=== PATIENT | male | born 1955 | race Caucasian/White ===

== ENCOUNTER 2019-05-04 13:14 | Emergency (ER) | payer MEDICAID, OTHER ==
--- OUTSIDE RECORDS SUMMARY | 2019-05-04 13:30 | XMS REPORT ---
:1955 [facility] Address [address] [place] [address] Care Team Providers Name Role Phone UNKNOWN, REFFERING Primary Care Provider Unavailable JOSIANE MANCERA Unavailable Unavailable Problems This patient has no known problems. Allergies, Adverse Reactions, Alerts This patient has no known allergies or adverse reactions. Medications This patient has no known medications. Results Test Description Test Time Test Comments Text Results Atomic Results Result Comments POC Glucose, Blood 2017-02-27 10:54:00 Test Item Value Reference Range Comments POC Glucose (test code=POCGLUC) 285 mg/dL 70-115 Notify RN or MDIf you consider your patient critically ill, the Timothy Accu-Chek InformII metershould not be used for Glucose determinations.Draw a venous Glucose and send to the Main Lab for Analysis. B-Type Natriuretic [id number] 14:13:00 Test Item Value Reference Range Comments B-Type Natriuretic Peptide (test unrh=661215) 94.4 pg/mL 0.0-100.0 Glycosylated [id number] 22:15:00 Test Item Value Reference Range Comments HBA1c (test code=HBA1C) 9.5 % 4.8-5.9 Hepatitis Acute [id number] 22:15:00 Test Item Value Reference Range Comments Hep Bs Ag (test Nonreactive Non-Reactive code=HBSAG) Hep C Ab (test code=HCAB) Nonreactive Non-Reactive A Reactive result may indicate a past or present HCV infection orpossibly a carrier state. It is not diagnostic of Hepatitis C.However, a patient with a repeatedly Reactive result should beconsidered infectious. Reactive for HCV antibody by EIA screeningshould be confirmed by a supplemental test. Hepatitis A IgM (test Nonreactive Non-Reactive code=HAVM) Hep B Core IgM (test Nonreactive Non-Reactive code=HBCABM) Lipid [id number] 22:04:00 Test Item Value Reference Range Comments Cholesterol (test 183 mg/dL 0-200 code=CHOL) Triglycerides (test 129 mg/dL 9-200 code=TRIG) HDL (test code=HDL) 45 mg/dL 40-60 Chol/HDL (test 4.1 Ratio 0.0-5.0 code=CHOLPHDL) LDL, Calculated (test 112 mg/dL 0-130 (NOTE)RISK OF HEART code=LDLC) DISEASEPublished by Swiss Heart AssociationAnalyte Optimal Boderline Increased RiskCHOL <200 200-239 >240TRIG <150 150-199 >200HDL Male: >60 <40HDL Female: >60 <50LDL <100 130-159 >160LDL NEAR OPTIMAL IS 100-129 VLDL (test code=VLDL) 26 mg/dL 5-40 LDL/HDL (test code=LDLPHDL) 2 Comprehensive Metabolic [id number] 22:04:00 Test Item Value Reference Range Comments Sodium (test code=NA) 133 mmol/L 135-145 Potassium (test code=K) 4.6 mmol/L 3.5-5.1 Chloride (test code=CL) 95 mmol/L 98-105 Carbon Dioxide (test 26 mmol/L 22-29 code=CO2) Glucose (test code=GLU) 298 mg/dL 70-115 Blood Urea Nitrogen 15 mg/dL 8-23 (test code=BUN) Creatinine (test 0.8 mg/dL 0.7-1.2 code=CREAT) Calcium (test code=CA) 11.3 mg/dL 8.3-10.5 Prot Total (test 6.8 g/dL 6.4-8.3 code=TP) Albumin (test code=ALB) 4.4 g/dL 3.5-5.2 A/G Ratio (test 1.8 Ratio code=AGRATIO) Globulin (test 2.4 2.9-3.1 code=GLOB) Bili Total (test 0.6 mg/dL 0.1-0.9 code=TBIL) Alk Phos (test 48 U/L 40-129 code=APHOS) AST (test code=AST) 15 U/L 1-40 ALT (test code=ALT) 17 U/L 1-41 BUN/Creatinine Ratio 18.8 (test code=BCRATIO) Anion Gap (test 12 mmol/L 7-16 code=AGAP) Estimated GFR (test >60 mL/min/1.73m2 eGFR (estimated Glomerular code=GFR) Filtration Rate) is an estimated value,calculated from the patient's serum creatinine using the MDRD equation.It is NOT the patient's actual GFR. The eGFR provides a more clinicallyuseful measure of kidney disease than serum creatinine alone.This calculation takes sex and race into account, if the informationis provided. If the race is not provided, and the patient isAfrican-Swiss, multiply by 1.212. If sex is not provided, and thepatient is female, multiply by 0.742. Results for patients <18 years ofage have not been validated by the MDRD study and should be interpretedwith caution.eGFR Result Interpretation:eGFR > or=60 is in the Normal RangeeGFR < 60 may mean kidney diseaseeGFR < 15 may mean kidney failureRanges recommended by the National Kidney Foundation,http://nkdep.nih .gov CBC with [id number] 21:54:00 Test Item Value Reference Range Comments WBC (test code=WBC) 7.4 K/cumm 4.4-10.5 RBC (test code=RBC) 5.09 M/cumm 4.10-5.70 Hemoglobin (test code=HGB) 14.8 gm/dL 13.4-17.4 Hematocrit (test code=HCT) 46.8 % 38.7-52.0 MCV (test code=MCV) 91.9 fL 80-100 MCH (test code=MCH) 29.1 pg 27.0-32.5 MCHC (test code=MCHC) 31.6 g/dL 32.0-37.5 RDW (test code=RDW) 14.5 % 11.5-14.5 Platelet Count (test code=PLTCT) 268 K/cumm 140-440 MPV (test code=MPV) 8.6 fL Diff Method (test code=DIFFM) Auto Neutrophil (test code=NEUT) 69.2 % 36-70 Lymphocyte (test code=LYMPH) 16.8 % 12-44 Monocyte (test code=MONO) 11.6 % 0-11 Eosinophil (test code=EOS) 1.9 % 0-7 Basophil (test code=BASO) 0.6 % 0-2 Neutro Abs (test code=ANEUT) 5.1 K/cumm 1.6-7.4 Lymph Abs (test code=ALYMPH) 1.2 K/cumm 0.5-4.6 Wells Abs (test code=AMONO) 0.9 K/cumm 0.0-1.2 Eos Abs (test code=AEOS) 0.14 K/cumm 0.00-0.74 Baso Abs (test code=ABASO) 0.1 K/cumm 0.00-0.21
[2019-05-04] MEDS ORDERED: KETOROLAC 30 MG/ML INJ ONE (15:07)
[2019-05-04] MEDS ORDERED: HYDROCODONE/APAP 10/325 TAB ONE (15:07)
[2019-05-04] MEDS ORDERED: METHYLPREDNISOLONE 125 MG INJ ONE (15:07)
[2019-05-04] MEDS ORDERED: ONDANSETRON 4 MG/2 ML VIAL ONE (16:25)
[2019-05-04] MEDS ORDERED: MORPHINE 4 MG/ML SYR ONE (16:25)
--- NOTE | 2019-05-04 17:08 | ER ---
Nurse's Notes [facility] Name: Santo Lauren Age: 63 yrs Sex: Male : 1955 Arrival Date: 05/04/2019 Time: 13:17 Bed 27 Private MD: Diagnosis: Low back pain Presentation: 05/04 13:20 Presenting complaint: Patient states: chronic back pain that got worse about a week aa5 ago. Pt states "my family threw away my Tylenol #4 by accident". Transition of care: patient was not received from another setting of care. Onset of symptoms was April 2019. Risk Assessment: Do you want to hurt yourself or someone else? Patient reports no desire to harm self or others. Initial Sepsis Screen: Does the patient meet any 2 criteria? No. Patient's initial sepsis screen is negative. Does the patient have a suspected source of infection? No. Patient's initial sepsis screen is negative. Care prior to arrival: None. 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 - Social history:: Smoking status: Patient/guardian denies using tobacco. - Ebola Screening: : No symptoms or risks identified at this time. Screenin:00 Abuse screen: Denies threats or abuse. Denies injuries from another. Nutritional ca1 screening: No deficits noted. Tuberculosis screening: No symptoms or risk factors identified. Fall Risk Fall in past 12 months (25 points). IV access (20 points). Ambulatory Aid- Crutches/Cane/Walker (15 pts). Gait- Impaired (20 pts.). Assessment: 15:00 General: Appears in no apparent distress. comfortable, Behavior is calm, cooperative, ca1 appropriate for age. Pain: Complains of pain in back and sacrum and lumbar spine Pain does not radiate. Pain currently is 7 out of 10 on a pain scale. Pain began worsening a week ago Is chronic. Neuro: Level of Consciousness is awake, alert, obeys commands, Oriented to person, place, time, situation. Cardiovascular: Heart tones S1 S2 present Capillary refill < 3 seconds Patient's skin is warm and dry. Respiratory: Airway is patent Respiratory effort is even, unlabored, Respiratory pattern is regular, symmetrical, Breath sounds are clear bilaterally. GI: Abdomen is round non-distended, Bowel sounds present X 4 quads. Abd is soft and non tender X 4 quads. : No deficits noted. No signs and/or symptoms were reported regarding the genitourinary system. EENT: No deficits noted. No signs and/or symptoms were reported regarding the EENT system. Derm: Skin is intact, is healthy with good turgor, Skin is pink, warm \\T\\ dry. Musculoskeletal: Circulation, motion, and sensation intact. Capillary refill < 3 seconds, Range of motion: limited in left ankle Pt has cast on L leg and ankle. 16:19 Reassessment: Patient appears in no apparent distress at this time. Patient and/or ca1 family updated on plan of care and expected duration. Pain level reassessed. Patient is alert, oriented x 3, equal unlabored respirations, skin warm/dry/pink. 16:32 Reassessment: Pt c/o back pain 9/10. Dr. Granados notified, Morphine and Zofran hb administered as ordered. VSS. remains at bedside. 17:10 Reassessment: Patient appears in no apparent distress at this time. Patient is alert, ca1 oriented x 3, equal unlabored respirations, skin warm/dry/pink. Vital Signs: 13:23 BP 108 / 84; Pulse 81; Resp 18 S; Temp 98.4(O); Pulse Ox 98% on R/A; Weight 97.52 kg aa5 (R); Height 6 ft. 3 in. (190.50 cm) (R); Pain 9/10; 16:19 BP 111 / 79; Pulse 93; Resp 16 S; Pulse Ox 97% on R/A; ca1 17:10 BP 114 / 87; Pulse 96; Resp 16 S; Pulse Ox 98% on R/A; ca1 13:23 Body Mass Index 26.87 (97.52 kg, 190.50 cm) aa5 ED Course: 13:17 Patient arrived in ED. as 13:20 Arm band placed on. aa5 13:21 Triage completed. aa5 14:42 Orlando Granados MD is Attending Physician. kdr 15:00 Patient has correct armband on for positive identification. Bed in low position. Call ca1 light in reach. Side rails up X 1. Pulse ox on. NIBP on. 15:05 Adriana Oleary, ALEX is Primary Nurse. ca1 15:10 No provider procedures requiring assistance completed. Inserted saline lock: 22 gauge ca1 in right antecubital area, using aseptic technique. 17:06 Jose Page MD is Referral Physician. kdr 17:25 IV discontinued, intact, bleeding controlled, No redness/swelling at site. Pressure ca1 dressing applied. Administered Medications: 15:11 Drug: [place] 10 mg-325 mg 1 tabs Route: PO; ca1 16:30 Follow up: Response: No adverse reaction; Pain is unchanged, physician notified; RASS: ca1 Alert and Calm (0) 15:12 Drug: SOLU-Medrol 125 mg Route: IVP; Site: right antecubital; ca1 17:12 Follow up: Response: No adverse reaction ca1 15:15 Drug: TORadol - Ketorolac 15 mg Route: IVP; Site: right antecubital; ca1 16:30 Follow up: Response: No adverse reaction; Pain is unchanged, physician notified ca1 16:31 Drug: morphine 4 mg {Note: RASS 0.} Route: IVP; Site: right antecubital; hb 17:12 Follow up: Response: No adverse reaction; Pain is decreased ca1 17:12 Follow up: Response: RASS: Alert and Calm (0) ca1 16:32 Drug: Zofran 4 mg Route: IVP; Site: right antecubital; hb 17:12 Follow up: Response: No adverse reaction; Nausea is decreased ca1 Outcome: 17:07 Discharge ordered by . kdr 17:25 Discharged to home via wheelchair, with significant other. ca1 17:25 Condition: stable 17:25 Discharge instructions given to patient, Instructed on discharge instructions, follow up and referral plans. medication usage, Demonstrated understanding of instructions, follow-up care, medications, Prescriptions given X 2. 17:26 Patient left the ED. ca1 Signatures: Orlando Granados MD MD kdr Thuy Vargas Audri, RN RN aa5 Kaley Rodriguez RN RN Adriana Oleary RN RN ca1 Corrections: (The following items were deleted from the chart) 13:24 13:23 BP 108 / 84; Pulse 81bpm; Resp 18bpm; Spontaneous; Pulse Ox 98% RA; Temp 98.4F aa5 Oral; 97.52 kg Reported; Height 6 ft. 3 in. Reported; BMI: 26.8; aa5 : 14:00 General: Appears in no apparent distress. comfortable, Behavior is calm, ca1 cooperative, appropriate for age, ca1 14: Pain: Complains of pain in back and sacrum and lumbar spine Pain does not ca1 radiate. Pain currently is 7 out of 10 on a pain scale. Pain began worsening a week ago Is chronic, ca1 14: Neuro: Level of Consciousness is awake, alert, obeys commands, Oriented to ca1 person, place, time, situation, ca1 14:00 Cardiovascular: Heart tones S1 S2 present Capillary refill < 3 seconds Patient's ca1 skin is warm and dry. ca1 14: Respiratory: Airway is patent Respiratory effort is even, unlabored, Respiratory ca1 pattern is regular, symmetrical, Breath sounds are clear bilaterally. ca1 14: GI: Abdomen is round non-distended, Bowel sounds present X 4 quads. Abd is soft ca1 and non tender X 4 quads. ca1 14: : No deficits noted. No signs and/or symptoms were reported regarding the ca1 genitourinary system. ca1 14: EENT: No deficits noted. No signs and/or symptoms were reported regarding the ca1 EENT system. ca1 14: Derm: Skin is intact, is healthy with good turgor, Skin is pink, warm \\T\\ dry. ca1 ca1 14: Musculoskeletal: Circulation, motion, and sensation intact. Capillary refill < 3 ca1 seconds, Range of motion: limited in left ankle Pt has cast on L leg and ankle ca1 14: Patient has correct armband on for positive identification. Bed in low position. ca1 Call light in reach. Side rails up X 1. ca1 14: Pulse ox on. NIBP on. ca1 ca1 14: Abuse screen: Denies threats or abuse. Denies injuries from another. ca1 ca1 14:00 Nutritional screening: No deficits noted. ca1 ca1 15:30 14:00 Tuberculosis screening: No symptoms or risk factors identified. ca1 ca1 15:30 14:00 Fall Risk Fall in past 12 months (25 points). IV access (20 points). Ambulatory ca1 Aid- Crutches/Cane/Walker (15 pts). Gait- Impaired (20 pts.). ca1
--- NOTE | 2019-05-04 17:08 | EDPHYS ---
[facility] Name: Santo Lauren Age: 63 yrs Sex: Male : 1955 Arrival Date: 05/04/2019 Time: 13:17 Bed 27 Private MD: ED Physician Orlando Granados HPI: 05/04 15:07 This 63 yrs old Male presents to ER via Wheelchair with complaints of Back kdr Pain. 15:07 The patient presents with pain that is chronic, with no known mechanism of injury. The kdr symptoms are located in the low back, coccyx area. Onset: The symptoms/episode began/occurred This is a longstanding problem that is not related to any new injury or precipitating event.. The pain does not radiate. Associated signs and symptoms: The patient has no apparent associated signs or symptoms. The problem was sustained from unknown cause. Modifying factors: The patient symptoms are alleviated by remaining still, the patient symptoms are aggravated by any movement. Severity of symptoms: At their worst the symptoms were moderate, a " 9" out of "10", in the emergency department the symptoms are unchanged. The patient has experienced similar episodes in the past, chronically, The patient states that he has an L5/S1 bulging disk. Last filmed 4+ years ago. 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 - Social history:: Smoking status: Patient/guardian denies using tobacco. - Ebola Screening: : No symptoms or risks identified at this time. ROS: 15:07 Constitutional: Negative for fever, chills, and weight loss, Eyes: Negative for injury, kdr pain, redness, and discharge, ENT: Negative for injury, pain, and discharge, Neck: Negative for injury, pain, and swelling, Cardiovascular: Negative for chest pain, palpitations, and edema, Respiratory: Negative for shortness of breath, cough, wheezing, and pleuritic chest pain, Abdomen/GI: Negative for abdominal pain, nausea, vomiting, diarrhea, and constipation, : Negative for injury, bleeding, discharge, and swelling, MS/Extremity: Negative for injury and deformity, Skin: Negative for injury, rash, and discoloration, Neuro: Negative for headache, weakness, numbness, tingling, and seizure activity. Psych: Negative for depression, anxiety, suicide ideation, homicidal ideation, and hallucinations, Allergy/Immunology: Negative for hives, rash, and allergies, Endocrine: Negative for neck swelling, polydipsia, polyuria, polyphagia, and marked weight changes, Hematologic/Lymphatic: Negative for swollen nodes, abnormal bleeding, and unusual bruising. 15:07 Back: Positive for decreased range of motion, pain at rest, pain with movement, Negative for injury or acute deformity. Exam: 15:07 Constitutional: This is a well developed, well nourished patient who is awake, alert, kdr and in no acute distress. Head/Face: Normocephalic, atraumatic. Eyes: Pupils equal round and reactive to light, extra-ocular motions intact. Lids and lashes normal. Conjunctiva and sclera are non-icteric and not injected. Cornea within normal limits. Periorbital areas with no swelling, redness, or edema. Neck: Trachea midline, no thyromegaly or masses palpated, and no cervical lymphadenopathy. Supple, full range of motion without nuchal rigidity, or vertebral point tenderness. No Meningismus. Chest/axilla: Normal chest wall appearance and motion. Nontender with no deformity. No lesions are appreciated. Cardiovascular: Regular rate and rhythm with a normal S1 and S2. No gallops, murmurs, or rubs. Normal PMI, no JVD. No pulse deficits. Respiratory: Lungs have equal breath sounds bilaterally, clear to auscultation and percussion. No rales, rhonchi or wheezes noted. No increased work of breathing, no retractions or nasal flaring. Abdomen/GI: Soft, non-tender, with normal bowel sounds. No distension or tympany. No guarding or rebound. No evidence of tenderness throughout. Skin: Warm, dry with normal turgor. Normal color with no rashes, no lesions, and no evidence of cellulitis. MS/ Extremity: Pulses equal, no cyanosis. Neurovascular intact. Full, normal range of motion. Neuro: Awake and alert, GCS 15, oriented to person, place, time, and situation. Cranial nerves II-XII grossly intact. Motor strength 5/5 in all extremities. Sensory grossly intact. Cerebellar exam normal. Normal gait. Psych: Awake, alert, with orientation to person, place and time. Behavior, mood, and affect are within normal limits. 15:07 Back: pain, that is mild, ROM is painful, with all movement, normal spinal alignment noted, CVA tenderness, is absent, vertebral tenderness, is appreciated at lumbar spine and sacrum. Vital Signs: 13:23 BP 108 / 84; Pulse 81; Resp 18 S; Temp 98.4(O); Pulse Ox 98% on R/A; Weight 97.52 kg aa5 (R); Height 6 ft. 3 in. (190.50 cm) (R); Pain 9/10; 16:19 BP 111 / 79; Pulse 93; Resp 16 S; Pulse Ox 97% on R/A; ca1 17:10 BP 114 / 87; Pulse 96; Resp 16 S; Pulse Ox 98% on R/A; ca1 13:23 Body Mass Index 26.87 (97.52 kg, 190.50 cm) aa5 MDM: 17:07 Patient medically screened. kdr Administered Medications: 15:11 Drug: [place] 10 mg-325 mg 1 tabs Route: PO; ca1 16:30 Follow up: Response: No adverse reaction; Pain is unchanged, physician notified; RASS: ca1 Alert and Calm (0) 15:12 Drug: SOLU-Medrol 125 mg Route: IVP; Site: right antecubital; ca1 17:12 Follow up: Response: No adverse reaction ca1 15:15 Drug: TORadol - Ketorolac 15 mg Route: IVP; Site: right antecubital; ca1 16:30 Follow up: Response: No adverse reaction; Pain is unchanged, physician notified ca1 16:31 Drug: morphine 4 mg {Note: RASS 0.} Route: IVP; Site: right antecubital; hb 17:12 Follow up: Response: No adverse reaction; Pain is decreased ca1 17:12 Follow up: Response: RASS: Alert and Calm (0) ca1 16:32 Drug: Zofran 4 mg Route: IVP; Site: right antecubital; hb 17:12 Follow up: Response: No adverse reaction; Nausea is decreased ca1 Disposition: 05/04/19 17:07 Discharged to Home. Impression: Low back pain. - Condition is Stable. - Discharge Instructions: Back Pain, Adult, [id number]. - Prescriptions for Tylenol- Codeine #3 300-30 mg Oral Tablet - take 2 tablets by ORAL route every 6 hours As needed; 10 tablet. Cyclobenzaprine 10 mg Oral Tablet - take 1 tablet by ORAL route every 8 hours As needed; 6 tablet. - Medication Reconciliation Form, Thank You Letter, Prescription Opioid Use form. - Follow up: Private Physician; When: Tomorrow; Reason: If symptoms return, Further diagnostic work-up, Recheck today's complaints, Continuance of care, Re-evaluation by your physician. Follow up: Jose Page MD; When: Tomorrow; Reason: If symptoms return, Further diagnostic work-up, Recheck today's complaints, Continuance of care, Re-evaluation by your physician. - Problem is an acute exacerbation. - Symptoms have improved. Signatures: Orlando Granados MD MD [facility] Heidy Su RN RN aa5 Kaley Rodriguez RN RN Accash, ALEX Wright RN ca1 Corrections: (The following items were deleted from the chart) 17:26 17:07 05/04/2019 17:07 Discharged to Home. Impression: Low back pain. Condition is ca1 Stable. Forms are Medication Reconciliation Form, Thank You Letter, Antibiotic Education, Prescription Opioid Use. Follow up: Private Physician; When: Tomorrow; Reason: If symptoms return, Further diagnostic work-up, Recheck today's complaints, Continuance of care, Re-evaluation by your physician. Follow up: Jose Page; When: Tomorrow; Reason: If symptoms return, Further diagnostic work-up, Recheck today's complaints, Continuance of care, Re-evaluation by your physician. Problem is an acute exacerbation. Symptoms have improved. kdr
[2019-05-04 17:57] VITALS: BP 114/87; O2SAT 98
[2019-05-05 00:58] VITALS: TEMP 98.4
== END 2019-05-04 17:26 | disposition home or self-care (01) ==
LOC: ER 13:14
DX: M54.5 Low back pain (principal); I10 Essential (primary) hypertension; Z88.8 Allergy status to other drugs, medicaments and biological substances
CPT/HCPCS: J2930; J2405

== ENCOUNTER 2019-05-26 16:43 | Emergency (ER) | payer OTHER ==
--- OUTSIDE RECORDS SUMMARY | 2019-05-26 16:45 | XMS REPORT ---
:1955 [facility] Address [address] [place] [address] Care Team Providers Name Role Phone UNKNOWN, [...] the Main Lab for Analysis. B-Type Natriuretic [id number] 14:13:00 Test Item Value Reference Range Comments B-Type Natriuretic Peptide (test lhjw=[id number]) 94.4 pg/mL 0.0-100.0 Glycosylated [id number] 22:15:00 Test Item Value Reference Range Comments HBA1c (test code=HBA1C) 9.5 % 4.8-5.9 Hepatitis Acute [id number] 22:15:00 Test Item Value Reference Range Comments [...] Core IgM (test Nonreactive Non-Reactive code=HBCABM) Lipid [id number] 22:04:00 Test Item Value Reference Range Comments Cholesterol (test 183 mg/dL 0-200 code=CHOL) Triglycerides (test 129 mg/dL 9-200 code=TRIG) HDL (test code=HDL) 45 mg/dL 40-60 Chol/HDL (test 4.1 Ratio 0.0-5.0 code=CHOLPHDL) LDL, Calculated (test 112 mg/dL 0-130 (NOTE)RISK OF HEART code=LDLC) DISEASEPublished by [place] Heart AssociationAnalyte Optimal Boderline Increased RiskCHOL <200 200-239 >240TRIG <150 150-199 >200HDL Male: >60 <40HDL Female: >60 <50LDL <100 130-159 >160LDL NEAR OPTIMAL IS 100-129 VLDL (test code=VLDL) 26 mg/dL 5-40 LDL/HDL (test code=LDLPHDL) 2 Comprehensive Metabolic [id number] 22:04:00 Test Item Value Reference Range Comments [...] race is not provided, and the patient isAfrican-Greenlandic, multiply by 1.212. If sex is not [...] the National Kidney Foundation,http://nkdep.nih .gov CBC with [id number] 21:54:00 Test Item Value Reference Range Comments [...] Lymph Abs (test code=ALYMPH) 1.2 K/cumm 0.5-4.6 [place] Abs (test code=AMONO) 0.9 K/cumm 0.0-1.2 Eos Abs (test code=AEOS) 0.14 K/cumm 0.00-0.74 Baso Abs (test code=ABASO) 0.1 K/cumm 0.00-0.21
[2019-05-26] MEDS ORDERED: FENTANYL CITR 100 MCG/2 ML ONE (17:47)
[2019-05-26 18:12] LABS: Absolute Lymphocytes (CBC) 1.5 K/uL (0.7-4.9); Basophils % 0.5 % (0-1.3); Hematocrit 43.1 % (39.6-49.0); Lymphocytes % 21.1 % (15.3-44.8); MPV 8.6 fL (7.6-11.3); RBC Red Blood Cell Count 4.74 M/uL (4.33-5.43)
--- NOTE | 2019-05-26 18:32 | RAD REPORT ---
EXAM DESCRIPTION: RAD - Foot Left 2 View - 05/26/2019 6:17 pm CLINICAL HISTORY: pressure ulcer COMPARISON: <Comparisons> FINDINGS: Soft tissue swelling is seen adjacent to the first metatarsal head. A foreign body is not seen. No definitive evidence of underlying osteomyelitis.
[2019-05-26 18:38] LABS: Potassium 4.8 mmol/L (3.5-5.1)
[2019-05-26] MEDS ORDERED: NA CHLORIDE 0.9% 1,000 ML ONE ×2 (18:53→19:42)
[2019-05-26] MEDS ORDERED: INSULIN -REGULAR HUMAN 50 UNIT/0.5 ML ML ONE ×2 (18:53→20:48)
[2019-05-26] MEDS ORDERED: levoFLOXacin 750 MG TAB ONE (21:50)
[2019-05-26] MEDS ORDERED: DOXYCYCLINE 100 MG CAP PO ONE (21:50)
--- NOTE | 2019-05-26 21:55 | ER ---
[facility] Name: Santo Lauren Age: 63 yrs Sex: Male : 1955 Arrival Date: 05/26/2019 Time: 16:46 Bed 27 Private MD: Diagnosis: Open wound of foot-left;Cellulitis of left lower limb;Diabetes mellitus due to underlying condition with hyperglycemia Presentation: 05/26 16:53 Presenting complaint: Patient states: my L foot ulcer seems to have split open worse. I ch go to the wound center in Dr. Emilee Jeffries. Transition of care: patient was not received from another setting of care. Onset of symptoms was May 25, 2019 at 04:00. Risk Assessment: Do you want to hurt yourself or someone else? Patient reports no desire to harm self or others. Initial Sepsis Screen: Does the patient meet any 2 criteria? No. Patient's initial sepsis screen is negative. Does the patient have a suspected source of infection? Yes: Skin breakdown/wound. Care prior to arrival: None. 16:53 Method Of Arrival: Ambulatory 16:53 Acuity: JEF 4 Triage Assessment: 16:55 General: Appears in no apparent distress. uncomfortable, Behavior is calm, cooperative, appropriate for age. Pain: Complains of pain in left foot Pain currently is 6 out of 10 on a pain scale. 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 - Social history:: Smoking status: Patient/guardian denies using tobacco. - Ebola Screening: : Patient negative for fever greater than or equal to 101.5 degrees Fahrenheit, and additional compatible Ebola Virus Disease symptoms Patient denies exposure to infectious person Patient denies travel to an Ebola-affected area in the 21 days before illness onset No symptoms or risks identified at this time. Screenin:11 Abuse screen: Denies threats or abuse. Denies injuries from another. Nutritional screening: No deficits noted. Tuberculosis screening: No symptoms or risk factors identified. 18:12 Fall Risk None identified. Assessment: 18:14 General: Appears in no apparent distress. Pain: Complains of pain in ball of left foot wh Pain does not radiate. Pain currently is 8 out of 10 on a pain scale. Quality of pain is described as aching, Pain began 1 day ago. Neuro: Level of Consciousness is awake, alert, obeys commands, Oriented to person, place, time, situation, Appropriate for age. Cardiovascular: Capillary refill < 3 seconds. Respiratory: Airway is patent Respiratory effort is even, unlabored, Respiratory pattern is regular, symmetrical. GI: Abdomen is flat, non-distended. : No deficits noted. EENT: No deficits noted. Derm: Skin is intact, is healthy with good turgor, Wound noted ball of left foot. Musculoskeletal: Range of motion: intact in all extremities. 19:15 Reassessment: Patient appears in no apparent distress at this time. No changes from previously documented assessment. Patient and/or family updated on plan of care and expected duration. Pain level reassessed. Patient is alert, oriented x 3, equal unlabored respirations, skin warm/dry/pink. 20:16 Reassessment: Patient appears in no apparent distress at this time. No changes from previously documented assessment. Patient and/or family updated on plan of care and expected duration. Pain level reassessed. Patient is alert, oriented x 3, equal unlabored respirations, skin warm/dry/pink. 21:14 Reassessment: Patient appears in no apparent distress at this time. No changes from previously documented assessment. Patient and/or family updated on plan of care and expected duration. Pain level reassessed. Patient is alert, oriented x 3, equal unlabored respirations, skin warm/dry/pink. Patient denies pain at this time. Patient states feeling better. Patient states symptoms have improved. 22:15 Reassessment: Patient appears in no apparent distress at this time. No changes from previously documented assessment. Patient and/or family updated on plan of care and expected duration. Pain level reassessed. Patient is alert, oriented x 3, equal unlabored respirations, skin warm/dry/pink. Patient denies pain at this time. Patient states feeling better. Patient states symptoms have improved. Vital Signs: 16:55 BP 168 / 82; Pulse 105; Resp 18; Temp 98.3; Pulse Ox 99% on R/A; Weight 98.88 kg; Height 6 ft. 3 in. (190.50 cm); Pain 7/10; 17:11 BP 111 / 77; Pulse 97; Resp 20; Temp 98.7; Pulse Ox 96% ; lt1 18:00 BP 117 / 95; Pulse 93; Resp 18; Pulse Ox 94% ; wh 20:00 BP 110 / 88; Pulse 109; Resp 18; Pulse Ox 98% on R/A; wh 21:00 BP 101 / 87; Pulse 104; Resp 18; Pulse Ox 96% on R/A; wh 22:00 BP 128 / 86; Pulse 92; Resp 18; Pulse Ox 98% on R/A; wh 16:55 Body Mass Index 27.25 (98.88 kg, 190.50 cm) ED Course: 16:46 Patient arrived in ED. as 16:54 Triage completed. 16:55 Arm band placed on left wrist. Patient placed in an exam room. 17:08 Ishaan Hart PA is PHCP. cp 17:08 Hernando Mcgill MD is Attending Physician. cp 17:43 Ayala Orellana is Primary Nurse. 18:11 Inserted saline lock: 20 gauge in left antecubital area, using aseptic technique. Blood wh collected. 18:12 Patient has correct armband on for positive identification. Bed in low position. Call light in reach. Side rails up X 1. Pulse ox on. NIBP on. 18:16 X-ray completed. Portable x-ray completed in exam room. Patient tolerated procedure mh1 well. 18:18 XRAY Foot LEFT 2 View In Process Unspecified. EDMS 22:18 No provider procedures requiring assistance completed. IV discontinued, intact, wh bleeding controlled, No redness/swelling at site. Wound care: to OPen wound located on ball of left foot was cleaned with soap and water, dressed with 4X4s, Kerlix, Patient tolerated well. Administered Medications: 18:10 Drug: fentaNYL (PF) 25 mcg {Note: RASS 0.} Route: IVP; Site: left antecubital; 20:01 Follow up: Response: No adverse reaction; Pain is decreased; RASS: Alert and Calm (0) 19:01 Drug: Insulin Regular Human 10 units {Co-Signature: ca1 (Adriana Oleary RN).} Route: IVP; Site: left antecubital; 20:01 Follow up: Response: No adverse reaction; Blood sugar is lowered 19:01 Drug: NS 0.9% 1000 ml Route: IV; Rate: 1 bolus; Site: left antecubital; 20:01 Follow up: IV Status: Completed infusion 20:02 Drug: NS 0.9% 1000 ml Route: IV; Rate: 125 ml/hr; Site: left antecubital; 22:20 Follow up: Response: No adverse reaction; IV Status: Completed infusion 20:49 Drug: Insulin Regular Human 10 units {Co-Signature: ca1 (Adriana Oleary RN).} Route: IVP; Site: left antecubital; 22:17 Follow up: Response: No adverse reaction; Blood sugar is lowered 21:53 Drug: LevaQUIN 750 mg Route: PO; ca1 22:17 Follow up: Response: No adverse reaction 21:53 Drug: Doxycycline 100 mg Route: PO; ca1 22:17 Follow up: Response: No adverse reaction Point of Care Testing: Blood Glucose: 19:41 Blood Glucose: 307 mg/dL; lt1 21:48 Blood Glucose: 110 mg/dL; ca1 Ranges: Outcome: 21:50 Discharge ordered by MD. 22:19 Discharged to home ambulatory. 22:19 Condition: good 22:19 Discharge instructions given to patient, Instructed on discharge instructions, follow up and referral plans. no drinking with medication, no driving heavy equipment, medication usage, wound care, Demonstrated understanding of instructions, follow-up care, medications, wound care, Prescriptions given X 3. 22:19 Patient left the ED. Signatures: Dispatcher [employer] Alicia Quinteros, Dunia Carmen RN, ch 1 Thuy Vargas Corey, PA PA cp Habalo, Winsy Adriana Oleary RN RN ca1 [place], [facility] Adriana Oleary RN ca1
--- NOTE | 2019-05-26 21:56 | EDPHYS ---
Physician Documentation [facility] Name: Santo Lauren Age: 63 yrs Sex: Male : 1955 Arrival Date: 05/26/2019 Time: 16:46 Bed 27 Private MD: ED Physician Hernando Mcgill HPI: 05/26 17:45 This 63 yrs old Male presents to ER via Ambulatory with complaints of Wound cp Check. 17:45 The patient presents with pain, that is chronic, chronic wound left great toe. cp 17:45 The complaints affect the left foot. Onset: The symptoms/episode began/occurred cp gradually, and became worse today. Associated signs and symptoms: Pertinent positives: warmth, Pertinent negatives: calf tenderness, fever. 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 - Social history:: Smoking status: Patient/guardian denies using tobacco. - Ebola Screening: : Patient negative for fever greater than or equal to 101.5 degrees Fahrenheit, and additional compatible Ebola Virus Disease symptoms Patient denies exposure to infectious person Patient denies travel to an Ebola-affected area in the 21 days before illness onset No symptoms or risks identified at this time. ROS: 17:50 Constitutional: Negative for body aches, chills, fever, poor PO intake. cp 17:50 Eyes: Negative for injury, pain, redness, and discharge. cp 17:50 Cardiovascular: Negative for chest pain, palpitations. 17:50 Respiratory: Negative for cough, shortness of breath, wheezing. 17:50 Abdomen/GI: Negative for abdominal pain, nausea, vomiting, and diarrhea. 17:50 Skin: Positive for chronic wound left great toe. 17:50 Neuro: Negative for altered mental status, dizziness, headache, weakness. 17:50 All other systems are negative. Exam: 18:00 Constitutional: The patient appears in no acute distress, alert, awake, cp non-diaphoretic, non-toxic, well developed, well nourished. 18:00 Head/Face: Normocephalic, atraumatic. cp 18:00 Eyes: Periorbital structures: appear normal, Conjunctiva: normal, no exudate, no injection, Sclera: no appreciated abnormality, Lids and lashes: appear normal, bilaterally. 18:00 ENT: External ear(s): are unremarkable, Nose: is normal, Mouth: Lips: moist, Oral mucosa: pink and intact, moist, Posterior pharynx: is normal, airway is patent, no erythema, no exudate. 18:00 Chest/axilla: Inspection: normal, Palpation: is normal, no crepitus, no tenderness. 18:00 Cardiovascular: Rate: normal, Rhythm: regular. 18:00 Respiratory: the patient does not display signs of respiratory distress, Respirations: normal, no use of accessory muscles, no retractions, no splinting, no tachypnea. 18:00 Abdomen/GI: Exam negative for discomfort, distension, guarding, Inspection: abdomen appears normal. 18:00 Skin: cellulitis, that is moderate, on the left foot, chronic wound noted left great toe. 18:00 Neuro: Orientation: to person, place \T\ time. Mentation: is normal, Motor: moves all fours. Vital Signs: 16:55 BP 168 / 82; Pulse 105; Resp 18; Temp 98.3; Pulse Ox 99% on R/A; Weight 98.88 kg; ch Height 6 ft. 3 in. (190.50 cm); Pain 7/10; 17:11 BP 111 / 77; Pulse 97; Resp 20; Temp 98.7; Pulse Ox 96% ; lt1 18:00 BP 117 / 95; Pulse 93; Resp 18; Pulse Ox 94% ; wh 20:00 BP 110 / 88; Pulse 109; Resp 18; Pulse Ox 98% on R/A; wh 21:00 BP 101 / 87; Pulse 104; Resp 18; Pulse Ox 96% on R/A; wh 22:00 BP 128 / 86; Pulse 92; Resp 18; Pulse Ox 98% on R/A; wh 16:55 Body Mass Index 27.25 (98.88 kg, 190.50 cm) ch MDM: 17:47 Patient medically screened. cp 20:00 Differential diagnosis: cellulitis, osteomyelitis, gangrene, sepsis. cp 21:50 Data reviewed: vital signs, nurses notes, lab test result(s), radiologic studies, plain cp films, and as a result, I will discharge patient. 21:50 Counseling: I had a detailed discussion with the patient and/or guardian regarding: the cp historical points, exam findings, and any diagnostic results supporting the discharge/admit diagnosis, lab results, radiology results, the need for outpatient follow up, a general surgeon, wound care clinic. 21:50 Response to treatment: the patient's symptoms have markedly improved after treatment, cp and as a result, I will discharge patient. 21:50 ED course: VSS. WBC and repeat lactate WNL. Will discharge to home with oral cp antibiotics. 05/26 17:27 Order name: CBC with Diff; Complete Time: 18:44 05/26 17:27 Order name: BMP; Complete Time: 19:05 cp 05/26 19:05 Interpretation: Normal except: NA 135; GLUC 495; BUN 19; GFR 58. cp 05/26 17:27 Order name: Blood Culture Adult (2) cp 05/26 17:27 Order name: Procalcitonin; Complete Time: 20:19 cp 05/26 17:27 Order name: Lactate; Complete Time: 18:44 cp 05/26 17:27 Order name: XRAY Foot LEFT 2 View; Complete Time: 18:44 05/26 20:21 Order name: Glucose, Ancillary Testing; Complete Time: 20:37 EDCA 05/26 21:24 Order name: Lactate Sepsis 2 HR Follow-up; Complete Time: 21:36 EDMS 05/26 17:27 Order name: IV; Complete Time: 17:44 cp 05/26 21:37 Order name: Accucheck Blood Glucose; Complete Time: 21:48 cp 05/26 21:49 Order name: Wound dressing; Complete Time: 21:52 cp 05/26 21:49 Order name: Post-op shoe; Complete Time: 21:52 cp Administered Medications: 18:10 Drug: fentaNYL (PF) 25 mcg {Note: RASS 0.} Route: IVP; Site: left antecubital; 20:01 Follow up: Response: No adverse reaction; Pain is decreased; RASS: Alert and Calm (0) 19:01 Drug: Insulin Regular Human 10 units {Co-Signature: ca1 (Adriana Oleary RN).} Route: IVP; Site: left antecubital; 20:01 Follow up: Response: No adverse reaction; Blood sugar is lowered 19:01 Drug: NS 0.9% 1000 ml Route: IV; Rate: 1 bolus; Site: left antecubital; 20:01 Follow up: IV Status: Completed infusion 20:02 Drug: NS 0.9% 1000 ml Route: IV; Rate: 125 ml/hr; Site: left antecubital; 22:20 Follow up: Response: No adverse reaction; IV Status: Completed infusion 20:49 Drug: Insulin Regular Human 10 units {Co-Signature: ca1 (Adriana Oleary RN).} Route: IVP; Site: left antecubital; 22:17 Follow up: Response: No adverse reaction; Blood sugar is lowered 21:53 Drug: LevaQUIN 750 mg Route: PO; ca1 22:17 Follow up: Response: No adverse reaction 21:53 Drug: Doxycycline 100 mg Route: PO; ca1 22:17 Follow up: Response: No adverse reaction Point of Care Testing: Blood Glucose: 19:41 Blood Glucose: 307 mg/dL; lt1 21:48 Blood Glucose: 110 mg/dL; ca1 Ranges: Critical Glucose Levels:Adult <50 mg/dl or >400 mg/dl <40 mg/dl or >180 mg/dl Disposition: 05/26/19 21:50 Discharged to Home. Impression: Open wound of foot - left, Cellulitis of left lower limb, Diabetes mellitus due to underlying condition with hyperglycemia. - Condition is Stable. - Discharge Instructions: Cellulitis, Adult, Blood Glucose Monitoring, Adult, Diabetes Mellitus and Food, Insulin Treatment for Diabetes. - Prescriptions for Doxycycline Monohydrate 100 mg Oral Tablet - take 1 tablet by ORAL route every 12 hours for 10 days; 20 tablet. Levaquin 500 mg Oral Tablet - take 1 tablet by ORAL route once daily for 10 days start evening of 05-27-2019; 9 tablet. Tylenol- Codeine #3 300-30 mg Oral Tablet - take 2 tablets by ORAL route every 8 hours As needed; 15 tablet. - Medication Reconciliation Form, Thank You Letter, Antibiotic Education, Prescription Opioid Use form. - Follow up: Private Physician; When: 1 - 2 days; Reason: Wound Recheck. - Problem is an ongoing problem. - Symptoms have improved. Addendum: 05/28/2019 07:03 Co-signature as Attending Physician, Hernando Mcgill MD. r n Signatures: Dispatcher [employer] EDCA Alicia Eugene RN RN Hernando Mcgill MD MD rn Page, Corey, PA PA cp Habalo, Winsy Adriana Oleary RN RN ca1 Adriana Oleary RN ca1 Corrections: (The following items were deleted from the chart) 05/26 20:49 20:21 LACTATE+C.LAB.BRZ ordered. EDCA EDMS 22:19 21:50 05/26/2019 21:50 Discharged to Home. Impression: Open wound of foot - left; wh Cellulitis of left lower limb; Diabetes mellitus due to underlying condition with hyperglycemia. Condition is Stable. Forms are Medication Reconciliation Form, Thank You Letter, Antibiotic Education, Prescription Opioid Use. Follow up: Private Physician; When: 1 - 2 days; Reason: Wound Recheck. Problem is an ongoing problem. Symptoms have improved. cp
[2019-05-26 23:32] VITALS: TEMP 98.7
[2019-05-26 23:37] VITALS: BP 128/86; O2SAT 98
== END 2019-05-26 22:19 | disposition home or self-care (01) ==
LOC: ER 16:43
DX: L03.032 Cellulitis of left toe (principal); E08.65 Diabetes mellitus due to underlying condition with hyperglycemia; Z79.4 Long term (current) use of insulin; I10 Essential (primary) hypertension; I48.91 Unspecified atrial fibrillation; Z88.8 Allergy status to other drugs, medicaments and biological substances
CPT/HCPCS: 96361; 87040 ×2; 85025; 80048; 36415; 87205; 82962 ×2; 83605 ×2; 84145; 73620; 96375; 96374; 99284; J3010; J7030 ×2

== ENCOUNTER 2019-11-07 10:41 | Emergency (ER) | payer OTHER ==
--- OUTSIDE RECORDS SUMMARY | 2019-11-07 10:44 | XMS REPORT ---
:1955 [facility] Address [address] [place] [address] Care Team Providers Name Role Phone UNKNOWN, [...] the Main Lab for Analysis. B-Type Natriuretic [id number] 14:13:00 Test Item Value Reference Range Comments B-Type Natriuretic Peptide (test ymgg=[id number]) 94.4 pg/mL 0.0-100.0 Glycosylated [id number] 22:15:00 Test Item Value Reference Range Comments HBA1c (test code=HBA1C) 9.5 % 4.8-5.9 Hepatitis Acute [id number] 22:15:00 Test Item Value Reference Range Comments [...] Core IgM (test Nonreactive Non-Reactive code=HBCABM) Lipid [id number] 22:04:00 Test Item Value Reference Range Comments Cholesterol (test 183 mg/dL 0-200 code=CHOL) Triglycerides (test 129 mg/dL 9-200 code=TRIG) HDL (test code=HDL) 45 mg/dL 40-60 Chol/HDL (test 4.1 Ratio 0.0-5.0 code=CHOLPHDL) LDL, Calculated (test 112 mg/dL 0-130 (NOTE)RISK OF HEART code=LDLC) DISEASEPublished by Pakistani Heart AssociationAnalyte Optimal Boderline Increased RiskCHOL <200 200-239 >240TRIG <150 150-199 >200HDL Male: >60 <40HDL Female: >60 <50LDL <100 130-159 >160LDL NEAR OPTIMAL IS 100-129 VLDL (test code=VLDL) 26 mg/dL 5-40 LDL/HDL (test code=LDLPHDL) 2 Comprehensive Metabolic [id number] 22:04:00 Test Item Value Reference Range Comments [...] race is not provided, and the patient isAfrican-Pakistani, multiply by 1.212. If sex is not [...] the National Kidney Foundation,http://nkdep.nih .gov CBC with [id number] 21:54:00 Test Item Value Reference Range Comments [...] Lymph Abs (test code=ALYMPH) 1.2 K/cumm 0.5-4.6 [place] Abs (test code=AMONO) 0.9 K/cumm 0.0-1.2 Eos Abs (test code=AEOS) 0.14 K/cumm 0.00-0.74 Baso Abs (test code=ABASO) 0.1 K/cumm 0.00-0.21
[2019-11-07] MEDS ORDERED: KETOROLAC 30 MG/ML INJ ONE (11:40)
--- NOTE | 2019-11-07 12:12 | RAD REPORT ---
EXAM DESCRIPTION: RAD - Hip Left 2 View - 11/07/2019 11:59 am CLINICAL HISTORY: Left hip pain FINDINGS: No fracture or dislocation is seen. Osteoporosis. Mild osteoarthritis involves the left hip
--- NOTE | 2019-11-07 12:13 | RAD REPORT ---
EXAM DESCRIPTION: RAD - Pelvis - 11/07/2019 12:00 pm CLINICAL HISTORY: Pelvic pain FINDINGS: No fracture or dislocation is seen. Osteoporosis Mild osteoarthritis involves the hips
[2019-11-07 12:20] LABS: Urine Bacteria NONE SEEN /HPF (NONE SEEN); Urine Culture Reflex Order NOT NEEDED; Urine Mucus HEAVY /HPF (NONE SEEN); Urine RBC NONE SEEN /HPF (NONE SEEN)
[2019-11-07 12:20] LABS: Urine Blood NEGATIVE (NEG); Urine Glucose TRACE (NEG); Urine Protein TRACE (NEG); Urine Specific Gravity >1.030 (1.005-1.030); Urine pH 5.5 (5.0-7.0)
--- NOTE | 2019-11-07 13:03 | RAD REPORT ---
EXAM DESCRIPTION: CT - Pelvis Wo Cont - 11/07/2019 12:52 pm CLINICAL HISTORY: left hip pain Progressive left hip pain, radiculopathy COMPARISON: Pelvis dated 11/07/2019; Hip Left 2 View dated 11/07/2019 TECHNIQUE: All CT scans are performed using dose optimization technique as appropriate and may inclu de automated exposure control or mA/KV adjustment according to patient size. FINDINGS: Osteoarthritic changes are present in both hips with joint space loss and small osteophyte s. No fracture, dislocation or AVN pattern is observed. Moderate lumbosacral degenerative changes are seen with chronic bilateral spondylolysis at L5-S1. Mil d associated anterolisthesis of L5 on S1 is seen. Sacral ala are intact. No soft tissue mass or hematoma. Atherosclerosis. Small bilateral inguinal hernias are seen, without bowel involvement. IMPRESSION: [id number] bilateral osteoarthritis of the hips. No acute fracture dislocation or AVN pattern. All CT scans are performed using dose optimization technique as appropriate and may include automated exposure control or mA/KV adjustment according to patient size.
--- NOTE | 2019-11-07 13:10 | RAD REPORT ---
EXAM DESCRIPTION: CTSpine Lumbar Wo Con11/07/2019 12:57 pm CLINICAL HISTORY: Left leg radiculopathy COMPARISON: June 2019 MRI TECHNIQUE: Computed axial tomography lumbar spine was obtained with coronal and sagittal reconstruct ion. All CT scans are performed using dose optimization technique as appropriate and may include automated exposure control or mA/KV adjustment according to patient size. FINDINGS: Slight anterior subluxation L5 on S1. Bilateral spondylolysis L5 No acute fracture or dislocation Minimal spondylosis involves L1-2, L2-3, L3-4 L4-5. A vacuum phenomena is present at L5. Thecal sac is normal caliber. Mild to moderate narrowing left ne ural foramina IMPRESSION: Slight anterior subluxation L5 on S1 with spondylolysis L5 Mild to moderate left foraminal stenosis L5
--- NOTE | 2019-11-07 13:40 | ER ---
Nurse's Notes [facility] Name: Santo Lauren Age: 64 yrs Sex: Male : 1955 Arrival Date: 11/07/2019 Time: 10:43 Bed 14 Private MD: Jose Page E Diagnosis: Low back pain;Radiculopathy, lumbosacral region-left Presentation: 11/07 11:07 Presenting complaint: Patient states: Chronic L hip pain that has gotten much worse ss over the past week or so. Pt has been seen at [facility] recently for same complaint and given Flexeril and Tylenol #3. Pt reports that the medication is not helping. Transition of care: patient was not received from another setting of care. Onset of symptoms is unknown. Risk Assessment: Do you want to hurt yourself or someone else? Patient reports no desire to harm self or others. Initial Sepsis Screen: Does the patient meet any 2 criteria? No. Patient's initial sepsis screen is negative. Does the patient have a suspected source of infection? No. Patient's initial sepsis screen is negative. Care prior to arrival: None. 11:07 Method Of Arrival: Wheelchair ss 11:07 Acuity: JEF 4 ss Triage Assessment: 11:16 General: Appears in no apparent distress. comfortable, Behavior is calm, cooperative, bp appropriate for age. Pain: Complains of pain in left hip. EENT: No deficits noted. Neuro: No deficits noted. Cardiovascular: No deficits noted. Respiratory: No deficits noted. GI: No signs and/or symptoms were reported involving the gastrointestinal system. : No signs and/or symptoms were reported regarding the genitourinary system. Derm: No deficits noted. Musculoskeletal: No deficits noted. 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 - Coronavirus screen:: The patient has NOT traveled to [place] in the past 14 days. Proceed with normal triage process as indicated. - Social history:: Smoking status: Patient denies any tobacco usage or history of. - Ebola Screening: : Patient denies exposure to infectious person Patient denies travel to an Ebola-affected area in the 21 days before illness onset. Screenin:16 Abuse screen: Denies threats or abuse. Denies injuries from another. Nutritional bp screening: No deficits noted. Tuberculosis screening: No symptoms or risk factors identified. Fall Risk None identified. Assessment: 11:16 General: SEE TRIAGE NOTE. bp 12:04 Reassessment: PT RETURNED FROM RADIOLOGY. bp 12:45 Reassessment: PT TO CT. bp 13:51 Reassessment: PT D/C HOME VIA W/C, DX WITH RADICULOPATHY. bp Vital Signs: 11:09 BP 141 / 95; Pulse 76; Resp 16; Temp 98.0(TE); Pulse Ox 99% on R/A; Weight 104.33 kg; ss Height 6 ft. 3 in. (190.50 cm); Pain 8/10; 12:05 BP 155 / 102; Pulse 52; Resp 17; Pulse Ox 96% ; bp 12:45 BP 133 / 90; Pulse 93; Resp 16; Pulse Ox 96% ; bp 13:51 BP 135 / 84; Pulse 85; Resp 17; Temp 98; Pulse Ox 97% ; bp 11:09 Body Mass Index 28.75 (104.33 kg, 190.50 cm) ss ED Course: 10:43 Patient arrived in ED. mr 10:43 Jose Page MD is Private Physician. mr 11:09 Triage completed. ss 11:09 Arm band placed on right wrist. ss 11:10 Ishaan Hart PA is PHCP. cp 11:10 Ishaan Hernandez MD is Attending Physician. cp 11:15 Hiren Wisdom, ALEX is Primary Nurse. bp 11:16 Patient has correct armband on for positive identification. Bed in low position. Call bp light in reach. Side rails up X2. 13:18 CT Lumbar Spine Wo Con In Process Unspecified. EDMS 13:52 No provider procedures requiring assistance completed. Patient did not have IV access bp during this emergency room visit. Administered Medications: 11:47 Drug: TORadol 30 mg Route: IM; Site: right deltoid; bp 13:53 Follow up: Response: Pain is decreased bp Outcome: 13:39 Discharge ordered by . cp 13:52 Discharged to home via wheelchair. bp 13:52 Condition: stable 13:52 Discharge instructions given to patient, Instructed on discharge instructions, follow up and referral plans. medication usage, Demonstrated understanding of instructions, follow-up care, medications, Prescriptions given X 3. 13:54 Patient left the ED. bp Signatures: Dispatcher [employer] SAHARAMT Dina Bellamy YamilaEemly horn, RN RN ss Ishaan Hart PA PA cp Peltier, Brian, RN RN bp
--- NOTE | 2019-11-07 13:40 | EDPHYS ---
Physician Documentation [facility] Name: Santo Via Age: 64 yrs Sex: Male : 1955 Arrival Date: 11/07/2019 Time: 10:43 Bed 14 Private MD: Jose Page E ED Physician Ishaan Hrenandez HPI: 11/07 11:30 This 64 yrs old Male presents to ER via Wheelchair with complaints of Hip cp Pain. 11:30 The patient or guardian reports pain. sustained from unknown reason, The patient is cp able to ambulate with assistance. Patient is not able to bear weight. 11:30 The patient presents with pain that is chronic, with no known mechanism of injury. cp 11:30 The symptoms are located in the low back. cp 11:30 The complaints affect the left hip. cp 11:30 Associated signs and symptoms: Pertinent negatives: abdominal pain, dysuria, fever, cp incontinence, numbness. The patient has been recently seen by a physician: in [place] ED, with similar presenting complaints, was given a prescription for pain medications. 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 - Coronavirus screen:: The patient has NOT traveled to [place] in the past 14 days. Proceed with normal triage process as indicated. - Social history:: Smoking status: Patient denies any tobacco usage or history of. - Ebola Screening: : Patient denies exposure to infectious person Patient denies travel to an Ebola-affected area in the 21 days before illness onset. ROS: 11:40 Constitutional: Negative for body aches, chills, fever. cp 11:40 Eyes: Negative for injury, pain, redness, and discharge. cp 11:40 Cardiovascular: Negative for chest pain. cp 11:40 Neck: Negative for pain with movement, pain at rest. cp 11:40 Respiratory: Negative for cough, shortness of breath, wheezing. 11:40 Abdomen/GI: Negative for abdominal pain, vomiting, diarrhea, constipation, black/tarry stool, rectal bleeding, bowel incontinence. 11:40 Back: Positive for pain at rest, pain with movement, of the low back area. 11:40 : Negative for urinary symptoms, difficulty urinating, bladder incontinence, testicular pain 11:40 MS/extremity: Positive for pain, of the left hip, Negative for injury or acute deformity. 11:40 Skin: Negative for rash. 11:40 Neuro: Negative for headache, numbness, tingling. 11:40 All other systems are negative. Exam: 11:45 Constitutional: The patient appears in no acute distress, alert, awake, non-toxic, well cp developed, well nourished. 11:45 Head/Face: Normocephalic, atraumatic. cp 11:45 Eyes: Periorbital structures: appear normal, Conjunctiva: normal, no exudate, no cp injection, Sclera: no appreciated abnormality, Lids and lashes: appear normal, bilaterally. 11:45 ENT: External ear(s): are unremarkable, Nose: is normal, Mouth: Lips: moist, Oral cp mucosa: pink and intact, moist, Posterior pharynx: is normal, airway is patent. 11:45 Neck: ROM/movement: is normal, is supple, without pain, no range of motions limitations, no nuchal rigidity. 11:45 Chest/axilla: Inspection: normal. 11:45 Cardiovascular: Rate: normal. 11:45 Respiratory: the patient does not display signs of respiratory distress, Respirations: normal, no use of accessory muscles, labored breathing, is not present. 11:45 Abdomen/GI: Inspection: abdomen appears normal, Palpation: abdomen is soft and non-tender, in all quadrants, voluntary guarding, is not appreciated, involuntary guarding, is not appreciated. 11:45 Back: pain, that is moderate, of the low back area, ROM is painful, with flexion. 11:45 Musculoskeletal/extremity: Joints: the left hip displays pain at rest, painful range of motion, tenderness. 11:45 Skin: no rash present. 11:45 Neuro: Motor: moves all fours, strength is normal, Sensation: no obvious gross deficits. Vital Signs: 11:09 BP 141 / 95; Pulse 76; Resp 16; Temp 98.0(TE); Pulse Ox 99% on R/A; Weight 104.33 kg; ss Height 6 ft. 3 in. (190.50 cm); Pain 8/10; 12:05 BP 155 / 102; Pulse 52; Resp 17; Pulse Ox 96% ; bp 12:45 BP 133 / 90; Pulse 93; Resp 16; Pulse Ox 96% ; bp 13:51 BP 135 / 84; Pulse 85; Resp 17; Temp 98; Pulse Ox 97% ; bp 11:09 Body Mass Index 28.75 (104.33 kg, 190.50 cm) ss MDM: 11:16 Patient medically screened. cp 12:00 Differential diagnosis: sciatica, Herniated disc hip fracture, intertrochanteric cp fracture, femoral neck fracture. 13:38 Data reviewed: vital signs, nurses notes, lab test result(s), radiologic studies, CT cp scan, plain films, and as a result, I will discharge patient. 13:38 Test interpretation: by ED physician or midlevel provider: plain radiologic studies. cp Counseling: I had a detailed discussion with the patient and/or guardian regarding: the historical points, exam findings, and any diagnostic results supporting the discharge/admit diagnosis, radiology results, the need for outpatient follow up, for definitive care, a family practitioner, to return to the emergency department if symptoms worsen or persist or if there are any questions or concerns that arise at home. Response to treatment: the patient's symptoms have mildly improved after treatment, and as a result, I will discharge patient. 11/07 11:24 Order name: Urine Microscopic Only 11/07 11:46 Order name: Urine Dipstick--Ancillary (enter results) 11/07 11:24 Order name: XRAY Hip LEFT 2 view 11/07 11:24 Order name: XRAY Pelvis 11/07 12:22 Order name: Urine Microscopic Only EDCT 11/07 12:22 Order name: Urine Dipstick-Ancillary; Complete Time: 12:32 EDCT 11/07 11:24 Order name: Urine Dipstick-Ancillary (obtain specimen); Complete Time: 11:47 cp 11/07 12:32 Order name: CT Pelvis wo Cont cp 11/07 12:33 Order name: CT Lumbar Spine Wo Con cp 11/07 12:37 Order name: RAD; Complete Time: 13:30 EDCT 11/07 13:30 Interpretation: Report reviewed. cp 11/07 12:37 Order name: RAD; Complete Time: 13:30 EDCT 11/07 13:31 Interpretation: Report reviewed. 11/07 13:48 Order name: CT EDCT Administered Medications: 11:47 Drug: TORadol 30 mg Route: IM; Site: right deltoid; bp 13:53 Follow up: Response: Pain is decreased bp Disposition: 11/07/19 13:39 Discharged to Home. Impression: Low back pain, Radiculopathy, lumbosacral region - left. - Condition is Stable. - Discharge Instructions: Back Pain, Adult, Heat Therapy, Back Exercises. - Prescriptions for Lidoderm 5 % Topical adhesive patch,medicated - apply 1 patch by TRANSDERMAL route once daily; 1 box. Tramadol 50 mg Oral Tablet - take 1 tablet by ORAL route every 8 hours as needed; 12 tablet. Medrol (Aristeo) 4 mg Oral Tablets, Dose Pack - take 1 tablet by ORAL route as directed - follow package instructions; 1 packet. - Medication Reconciliation Form, Thank You Letter, Antibiotic Education, Prescription Opioid Use form. - Follow up: Private Physician; When: 2 - 3 days; Reason: Recheck today's complaints. - Problem is an ongoing problem. - Symptoms have improved. Addendum: 11/09/2019 08:35 Co-signature as Attending Physician, Ishaan Hernandez MD I agree with the assessment and c leung plan of care. Signatures: Dispatcher [employer] [facility] Ishaan Hernandez MD MD cha Smirch, Shelby, RN RN Ishaan Mata PA PA cp Peltier, Brian, RN RN bp Corrections: (The following items were deleted from the chart) 11/07 13:54 13:39 11/07/2019 13:39 Discharged to Home. Impression: Low back pain; Radiculopathy, bp lumbosacral region - left. Condition is Stable. Forms are Medication Reconciliation Form, Thank You Letter, Antibiotic Education, Prescription Opioid Use. Follow up: Private Physician; When: 2 - 3 days; Reason: Recheck today's complaints. Problem is an ongoing problem. Symptoms have improved. cp
[2019-11-07 14:40] VITALS: TEMP 98
[2019-11-07 14:43] VITALS: O2SAT 96
[2019-11-07 14:44] VITALS: BP 133/90
== END 2019-11-07 13:54 | disposition home or self-care (01) ==
LOC: ER 10:41
DX: M54.17 Radiculopathy, lumbosacral region (principal); I10 Essential (primary) hypertension; Z88.8 Allergy status to other drugs, medicaments and biological substances
CPT/HCPCS: 72131; 72170; 72192; 81003; 81015; 96372; 99283

== ENCOUNTER 2024-05-22 23:37 | Emergency (ER) | payer OTHER ==
[2024-05-23] MEDS ORDERED: FENTANYL CITR 100 MCG/2 ML ONE (00:03)
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
[2024-05-23 02:54] VITALS: TEMP 98.3
[2024-05-23 02:57] VITALS: BP 126/79; O2SAT 99
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
--- NOTE | 2024-05-24 12:40 | EKG ---
Test Date: 2024-05-23 Test Time: 00:02:11 Web Mobile Designer: LULY MEASUREMENT RESULTS: Intervals: Rate: 97 NJ: QRSD: 160 QT: 378 QTc: 480 Mulga: P: NJ: QRS: -74 T: 77 INTERPRETIVE STATEMENTS: Atrial fibrillation Right bundle branch block Left anterior fascicular block Bifascicular block Abnormal ECG Compared to ECG 11/28/2016 20:26:05 Left anterior fascicular block now present Bifascicular block now present Electronically Signed On 05-24-24 12:37:23 CDT by Santos Sarabia
== END 2024-05-23 02:49 | disposition home or self-care (01) ==
LOC: ER 23:37
PROC: 2W3MX1Z Immobilization of Left Lower Extremity using Splint (ICD-10-PCS; principal; 2024-05-23)
DX: S92.192A Other fracture of left talus, initial encounter for closed fracture (principal); S92.332A Displaced fracture of third metatarsal bone, left foot, initial encounter for closed fracture; S92.342A Displaced fracture of fourth metatarsal bone, left foot, initial encounter for closed fracture; S92.512A Displaced fracture of proximal phalanx of left lesser toe(s), initial encounter for closed fracture; M25.562 Pain in left knee; I10 Essential (primary) hypertension; I48.91 Unspecified atrial fibrillation; E11.9 Type 2 diabetes mellitus without complications
CPT/HCPCS: 93005; 73630; 73562; 73590; 96372; 99284; 29505; J3010